=== PATIENT | male | born 1985 | race Two or more races ===

== ENCOUNTER 2020-08-21 18:04 | Emergency (ER) | payer OTHER ==
[~2020-08-21] VITALS: Ht 177.8 cm; Wt 88.5 kg
== END 2020-08-21 22:37 | disposition home or self-care (01) ==
LOC: ER 18:04
DX: B34.9 Viral infection, unspecified (principal); E86.0 Dehydration

== ENCOUNTER 2022-07-13 10:50 | Outpatient (CLI) | payer OTHER | END 2022-07-13 11:30 | disposition home or self-care (01) | LOC: ASH CLINIC 10:50 | PROVIDERS: ATTEND Specialist | DX: U07.1 COVID-19 (principal) ==

== ENCOUNTER 2022-07-13 12:24 | Emergency (ER) | payer OTHER ==
[~2022-07-13] VITALS: Ht 177.8 cm; Wt 95.3 kg
== END 2022-07-13 16:43 | disposition home or self-care (01) ==
LOC: ER 12:24
DX: U07.1 COVID-19 (principal); K29.70 Gastritis, unspecified, without bleeding